=== PATIENT | male | born 1985 | race Caucasian/White ===

== ENCOUNTER 2019-10-05 09:39 | Inpatient (IN) | payer MEDICAID ==
[~2019-10-05] VITALS: Ht 193 cm; Wt 72.7 kg
[~2019-10-05 09:39] MED LIST: CYAN500T46 PO; FAMO-128 PO
[2019-10-05] MEDS ORDERED: normal saline 1000ML IV soln IVB ONE (09:50)
[2019-10-05] MEDS ORDERED: ondansetron/PF 4mg/2ml inj IV ONE (09:50)
--- NOTE | 2019-10-05 10:14 | NUR ---
DEPUTY AMIN CALLED FOR UPDATE- WILL CALL BACK IN HR. #[phone]. PT CONSERVED.
[2019-10-05 10:24] LABS: BASOPHILS % (AUTO) 0.8 % (0-1); EOSINOPHILS # (AUTO) 0.2 X10'3 (0-0.9); EOSINOPHILS % (AUTO) 3.4 % (0-6); HEMATOCRIT 46.4 % (42.0-52.0); LYMPHOCYTES # (AUTO) 1.6 X10'3 (1.1-4.8); LYMPHOCYTES % (AUTO) 36.7 % (21-51); MEAN CORPUSCULAR HGB CONC 34.4 g/dL (33.0-36.5); MEAN CORPUSCULAR VOLUME 95.8 FL (78-98); MEAN PLATELET VOLUME 8.4 FL (7.4-10.4); MONOCYTES # (AUTO) 0.3 X10'3 (0-0.9); MONOCYTES % (AUTO) 6.7 % (2-12); NEUTROPHILS # (AUTO) 2.3 X10'3 (1.8-7.7); NEUTROPHILS % (AUTO) 52.4 % (42-75); PLATELET COUNT 184 X10'3 (140-440); RED BLOOD COUNT 4.84 X10'6 (4.70-6.10); RED CELL DISTRIBUTION WIDTH 13.9 % (11.5-14.5); WHITE BLOOD COUNT 4.4 X10'3 (4.5-11.0)
--- NOTE | 2019-10-05 10:32 | NUR ---
PT GOES BY TRAM.
[2019-10-05 10:48] LABS: ALANINE AMINOTRANSFERASE 41 U/L (12-78); ALBUMIN 3.7 G/DL (3.4-5.0); ALBUMIN/GLOBULIN RATIO 0.9 (1.1-1.5); ALKALINE PHOSPHATASE 153 IU/L (46-116); ANION GAP 7 (8-16); ASPARTATE AMINO TRANSFERASE 24 U/L (10-37); BILIRUBIN,TOTAL 0.5 MG/DL (0.1-1.0); BLOOD UREA NITROGEN 13 MG/DL (7-18); BUN/CREATININE RATIO 11.2 (5.4-32.0); CALCIUM 8.9 MG/DL (8.5-10.1); CHLORIDE 104 MMOL/L (99-107); CREATINE KINASE 48 U/L (39-308); CREATININE 1.16 MG/DL (0.60-1.10); GLUCOSE 110 MG/DL (70-104); MAGNESIUM 1.9 MG/DL (1.5-2.4); POTASSIUM 4.4 MMOL/L (3.5-5.1); SODIUM 139 MMOL/L (135-145); TOTAL PROTEIN 7.6 G/DL (6.4-8.2); eGFR 73 ML/MIN
[2019-10-05] MEDS ORDERED: iohexol 350MG/ML 100ml bottle IV ONE (11:01)
[2019-10-05 11:11] LABS: ETHANOL < 0.010 GM/DL (0.0-0.010)
--- NOTE | 2019-10-05 11:51 | NUR ---
marcy fong called for update- pt negative for marfans syndrome genetic testing, echo scheduled tomorrow. and cardiac stress test at dr carlson last week.
--- NOTE | 2019-10-05 11:52 | NUR ---
STRESS TEST REQUESTED FROM DR. SEVILLA'S OFFICE.
[2019-10-05 11:55] LABS: CLARITY,URINE CLEAR (Clear); COLOR,URINE YELLOW (Yellow); GLUCOSE, URINE NEGATIVE (Neg); KETONES,URINE NEGATIVE (Neg); LEUKOCYTE ESTERASE ,URINE NEGATIVE (Neg); NITRITES, URINE NEGATIVE (Neg); OCCULT BLOOD,URINE NEGATIVE (Neg); PH,URINE 6.5 (4.8-8.0); PROTEIN,URINE NEGATIVE (Neg); UROBILINOGEN,URINE 0.2 E.U/dL (0.2-1.0)
[2019-10-05 12:07] LABS: UA COLLECTION TYPE NON-SPECIFIED
[2019-10-05 12:15] LABS: URINE AMPHETAMINE SCREEN NEGATIVE (Neg); URINE BARBITUATE SCREEN NEGATIVE (Neg); URINE BENZODIAZEPINES SCREEN NEGATIVE (Neg); URINE CANNABINOID SCREEN NEGATIVE (Neg); URINE COCAINE SCREEN NEGATIVE (Neg); URINE METHADONE SCREEN NEGATIVE (Neg); URINE OPIATE SCREEN NEGATIVE (Neg); URINE PHENCYCLIDINE SCREEN NEGATIVE (Neg)
--- NOTE | 2019-10-05 12:20 | NUR ---
BAMBI UPDATED- PT NEGATIVE FOR MARFAN'S SYNDROME, ECHO TOMORROW AND CARDIAC STRESS TEST RECENT FROM DR DE LA VEGA.
[2019-10-05] MEDS ORDERED: enoxaparin 100mg/ml syringe SUBCUT ONE (12:25)
[2019-10-05] MEDS ORDERED: nitroGLYCERIN 0.4mg SUBLingual tab SL PRN (12:25)
[2019-10-05] MEDS ORDERED: aspirin 81mg tab.chew PO ONE (12:25)
[2019-10-05] MEDS ORDERED: OLAN15TA17 PO (12:29)
--- NOTE | 2019-10-05 12:54 | NUR ---
SANTI - UPDATED ON PT ADMISSION.
[2019-10-05] MEDS ORDERED: HYDROcodone/acetaminophen 5mg/325mg tablet PO PRN (13:05)
[2019-10-05] MEDS ORDERED: morphine 2 MG/ML inj. syringe IV PRN (13:05)
[2019-10-05] MEDS ORDERED: ondansetron/PF 4mg/2ml inj IV PRN (13:05)
[2019-10-05] MEDS ORDERED: acetaminophen 325mg tablet PO PRN ×2 (13:05)
[2019-10-05] MEDS ORDERED: magnesium hydroxide 30ml (MOM) UD suspension PO PRN (13:05)
[2019-10-05] MEDS ORDERED: mag hydrox/Alum hydrox/simeth 30ml oral suspension PO PRN (13:05)
--- NOTE | 2019-10-05 13:06 | NUR ---
CHRISTIE JARVIS FATHER AT BEDSIDE, REPORTS MUST GET CONSENT FROM CONSERVATOR DEPUTY. GIVING GRAYSON LACY DEPUTY INFORMATION.
[2019-10-05 13:43] LABS: HEMOGLOBIN A1C 5.4 % (4.5-6.2)
--- NOTE | 2019-10-05 15:22 | NUR ---
FLOOR NOT READY FOR REPORT, TO CALL BACK IN 10MIN
--- NOTE | 2019-10-05 15:36 | NUR ---
#[phone] CALL FOR CONSERVATOR DEPUTY IF NEEDED.
[2019-10-05 16:30] VITALS: BP 124/72
[2019-10-05] MEDS: morphine 2 MG/ML inj. syringe IV PRN ×2 (17:47→23:29)
[2019-10-05 18:00] VITALS: BP 113/69
--- NOTE | 2019-10-05 18:55 | NUR ---
Patient in room MED 314. I have received report from Gisele Aldana and had the opportunity to ask questions and assume patient care.
--- NOTE | 2019-10-05 19:44 | NUR ---
Problems reprioritized. Patient report given, questions answered & plan of care reviewed with TONG Price.
[2019-10-05] MEDS ORDERED: OLANZAPINE 5 MG TABLET PO SCH (21:00)
[2019-10-05] MEDS: metoprolol tartrate 12.5mg (1/2 tablet) PO SCH (21:12)
[2019-10-05 22:00] VITALS: BP 109/67
[2019-10-06] VITALS (11 sets, daily range): BP systolic 105–122; BP diastolic 56–76
[2019-10-06 02:53] LABS: BASOPHILS % (AUTO) 0.7 % (0-1); EOSINOPHILS # (AUTO) 0.2 X10'3 (0-0.9); EOSINOPHILS % (AUTO) 2.7 % (0-6); HEMATOCRIT 43.4 % (42.0-52.0); LYMPHOCYTES # (AUTO) 2.3 X10'3 (1.1-4.8); LYMPHOCYTES % (AUTO) 37.2 % (21-51); MEAN CORPUSCULAR HGB CONC 34.5 g/dL (33.0-36.5); MEAN CORPUSCULAR VOLUME 95.7 FL (78-98); MEAN PLATELET VOLUME 8.5 FL (7.4-10.4); MONOCYTES # (AUTO) 0.4 X10'3 (0-0.9); MONOCYTES % (AUTO) 6.4 % (2-12); NEUTROPHILS # (AUTO) 3.3 X10'3 (1.8-7.7); PLATELET COUNT 171 X10'3 (140-440); RED BLOOD COUNT 4.53 X10'6 (4.70-6.10); RED CELL DISTRIBUTION WIDTH 13.7 % (11.5-14.5); WHITE BLOOD COUNT 6.2 X10'3 (4.5-11.0)
[2019-10-06 03:02] LABS: ALBUMIN 3.4 G/DL (3.4-5.0); ANION GAP 7 (8-16); BLOOD UREA NITROGEN 14 MG/DL (7-18); BUN/CREATININE RATIO 12.8 (5.4-32.0); CALCIUM 8.9 MG/DL (8.5-10.1); CHLORIDE 105 MMOL/L (99-107); CHOL/HDL RATIO 5.4 (0.00-4.99); CHOLESTEROL 129 MG/DL (0-200); CREATININE 1.09 MG/DL (0.60-1.10); GLUCOSE 109 MG/DL (70-104); HDL CHOLESTEROL 24 MG/DL (35-60); LDL CHOLESTEROL 85 MG/DL (50-100); SODIUM 141 MMOL/L (135-145); TOTAL CARBON DIOXIDE 29.5 MMOL/L (24-32); TRIGLYCERIDES 143 MG/DL (20-135); eGFR 78 ML/MIN
--- NOTE | 2019-10-06 06:10 | NUR ---
Patient in room MED 314. I have received report from TONG Price and had the opportunity to ask questions and assume patient care.
--- NOTE | 2019-10-06 07:00 | NUR ---
Problems reprioritized. Patient report given, questions answered & plan of care reviewed with Gisele Aldana.
[2019-10-06] MEDS: metoprolol tartrate 12.5mg (1/2 tablet) PO SCH (07:47)
[2019-10-06] MEDS ORDERED: aspirin 325mg tablet PO SCH (08:30)
[2019-10-06] MEDS ORDERED: LIDOcaine/PRILOcaine 5gm cream TP ONE (11:00)
--- NOTE | 2019-10-06 11:05 | NUR ---
PAGED DR. JACKSON- PT RESISTING CATH PREP "RE; [place] IN 314. PATIENT IS SAYING HE'S NOT SURE HE WANTS TO DO THE HEART CATH, REFUSING OUR ATTEMPT TO PREP. I DON'T HAVE DR. KEITH'S NUMBER. THANK YOU, TAYLER NGUYEN [phone]"
[2019-10-06] MEDS ORDERED: iohexol 350MG/ML 100ml bottle IV ONE (11:38)
[2019-10-06] MEDS ORDERED: iohexol 350 MG/ML 50ML vial IV ONE (11:38)
[2019-10-06] MEDS ORDERED: fentaNYL/PF 50MCG/1 ML 2ML syringe ONE (11:38)
[2019-10-06] MEDS ORDERED: LIDOcaine 1% (10mg/ml)w/preservative injection 20ml MDV ONE (11:38)
[2019-10-06] MEDS ORDERED: midazolam 2 mg/2 ml injection ONE ×2 (11:38→12:24)
[2019-10-06] MEDS ORDERED: verapamil 2.5 mg/ml inj IV ONE (12:09)
[2019-10-06] MEDS ORDERED: nitroGLYCERIN-Tridil 50MG/D5W 250 ML IV ONE (12:10)
[2019-10-06] MEDS ORDERED: heparin 1,000unit/ml 10ml vial 10 ML ONE (12:10)
[2019-10-06] MEDS ORDERED: normal saline 1000ml 1,000 ML IV SCH (13:35)
--- NOTE | 2019-10-06 14:34 | NUR ---
Patient removed right radial pressure device. No bleeding, no hematoma present.
--- NOTE | 2019-10-06 15:03 | NUR ---
Malnutrition Consult: Pt currently documented at 72.7kg, pt states UBW between 150-160 pounds within the past year. Pt states no significant wt change. Pt currently NPO, however documented 10/05 with 50-75% PO intake on a regular diet last night. No edema. LBM 10/04. Pt does not currently meet criteria for malnutrition. Will continue to monitor. Addendum: 10/06/19 at 1503 by Wing Janet MOORE Amended: Links added. Addendum: 10/06/19 at [address] TERESA Approcr
[2019-10-06 15:48] LABS: ALANINE AMINOTRANSFERASE 33 U/L (12-78); ALBUMIN 3.3 G/DL (3.4-5.0); ALBUMIN/GLOBULIN RATIO 0.9 (1.1-1.5); ALKALINE PHOSPHATASE 143 IU/L (46-116); ANION GAP 7 (8-16); ASPARTATE AMINO TRANSFERASE 20 U/L (10-37); BILIRUBIN,TOTAL 0.3 MG/DL (0.1-1.0); BLOOD UREA NITROGEN 12 MG/DL (7-18); BUN/CREATININE RATIO 11.2 (5.4-32.0); CALCIUM 8.2 MG/DL (8.5-10.1); CHLORIDE 102 MMOL/L (99-107); CREATININE 1.07 MG/DL (0.60-1.10); GLUCOSE 145 MG/DL (70-104); POTASSIUM 3.5 MMOL/L (3.5-5.1); SODIUM 137 MMOL/L (135-145); TOTAL CARBON DIOXIDE 27.6 MMOL/L (24-32); TOTAL PROTEIN 6.9 G/DL (6.4-8.2); eGFR 80 ML/MIN
[2019-10-06 15:49] LABS: CHOL/HDL RATIO 3.9 (0.00-4.99); CHOLESTEROL 122 MG/DL (0-200); HDL CHOLESTEROL 31 MG/DL (35-60); LDL CHOLESTEROL 84 MG/DL (50-100); TRIGLYCERIDES 91 MG/DL (20-135)
--- NOTE | 2019-10-06 16:02 | NUR ---
Spoke with Radha at [facility] regarding transportation scheduling for patient's discharge. According to Radha, the owner manager of [facility], Merry Young, will be providing transport for patient during discharge. Contact info for Merry is # .
--- NOTE | 2019-10-06 16:25 | NUR ---
PAGER ID: [phone] MESSAGE: Patient Michel Goncalves #[phone]. Would you like patient to be discharge with home medication only? Or are there new medications? Thank you. - TONG Méndez [phone]
--- NOTE | 2019-10-06 16:29 | NUR ---
Patient found standing in doorway, redirected to bedside. Found patient PIV cannula TIP hanging on IV pole, intact and still running with normal saline going through it. Patient admitted to removing PIV. No redness, or bleeding notated. telemetry leads have also been removed by patient. Patient doing well. No s/s of distress.
--- NOTE | 2019-10-06 17:54 | NUR ---
Problems reprioritized. Patient report given, questions answered & plan of care reviewed with Albert,RN
--- NOTE | 2019-10-06 17:55 | NUR ---
Left a voicemail for Merry at [facility] to check on transportation status. Requested a call back.
--- NOTE | 2019-10-06 18:08 | NUR ---
Per MD, pt stable for discharge. ALL belongings gathered and sent with patient and caregiver. No new prescriptions. No PIV to remove. Discharge instructions reviewed with and signed by patient. Patient transported via WC by nursing staff to [facility] from assisted living facility. All questions and concerns addressed.
--- NOTE | 2019-10-06 18:24 | NUR ---
I have reviewed and agree with all interventions, assessments performed and documented by TONG Méndez
== END 2019-10-06 18:01 | disposition home or self-care (01) | DRG 192 ==
LOC: ER 09:40 → ED HOLD 13:03 → EDBEDREQSVC 14:44 → MED 3N 16:15 → CMPBEDREQ 21:22 → OBSVTOIN 10-06 09:00
PROVIDERS: ADMIT Internal Medicine; ATTEND Internal Medicine
PROC: B3201ZZ Computerized Tomography (CT Scan) of Thoracic Aorta using Low Osmolar Contrast (ICD-10-PCS; 2019-10-05)
PROC: B32T1ZZ Computerized Tomography (CT Scan) of Left Pulmonary Artery using Low Osmolar Contrast (ICD-10-PCS; 2019-10-05)
PROC: B32S1ZZ Computerized Tomography (CT Scan) of Right Pulmonary Artery using Low Osmolar Contrast (ICD-10-PCS; 2019-10-05)
PROC: 4A023N7 Measurement of Cardiac Sampling and Pressure, Left Heart, Percutaneous Approach (ICD-10-PCS; principal; 2019-10-06)
PROC: B2111ZZ Fluoroscopy of Multiple Coronary Arteries using Low Osmolar Contrast (ICD-10-PCS; 2019-10-06)
PROC: B2151ZZ Fluoroscopy of Left Heart using Low Osmolar Contrast (ICD-10-PCS; 2019-10-06)
DX: R07.89 Other chest pain (principal); I95.9 Hypotension, unspecified; Q87.40 Marfan syndrome, unspecified; F12.90 Cannabis use, unspecified, uncomplicated; I48.91 Unspecified atrial fibrillation; F17.210 Nicotine dependence, cigarettes, uncomplicated; R55 Syncope and collapse; I25.9 Chronic ischemic heart disease, unspecified; F41.9 Anxiety disorder, unspecified; R94.39 Abnormal result of other cardiovascular function study; J44.9 Chronic obstructive pulmonary disease, unspecified; Z87.820 Personal history of traumatic brain injury; Z88.0 Allergy status to penicillin
CPT/HCPCS: 36415; 71045; 71275; 80048; 80053; 80061; 80305; 80320; 81003; 82550; 83036; 83735; 83880; 84484; 85025; 87081; 93005; 93306; 93458; 96361; 96372; 96374; 96375; 96376; 99152; 99291; A4620; C1769; G0378; J1644; J1650; J2001; J2250; J2270; J2405; J3010; J3490; Q9967

== ENCOUNTER 2019-10-10 13:25 | Emergency (ER) | payer MEDICAID ==
[~2019-10-10] VITALS: Ht 188 cm; Wt 70.0 kg
[~2019-10-10 13:25] MED LIST changes: -CYAN500T46 PO; -FAMO-128 PO; +OLAN15TA17 PO
--- NOTE | 2019-10-10 14:23 | NUR ---
CONSERVATOR: MARK [phone]. [facility] [phone]
--- NOTE | 2019-10-10 14:39 | NUR ---
Spoke to Radha with [facility] and obtained verbal consent to treat pt. Radha requesting updates be given to Carmella as she is the primary conservator for pt.
[2019-10-10 14:55] VITALS: BP 120/68
[2019-10-10] MEDS ORDERED: IBUP-1984 PO (15:36)
--- NOTE | 2019-10-10 15:58 | NUR ---
RONEN called from said after hours number is [phone] ([facility])
== END 2019-10-10 16:16 | disposition home or self-care (01) ==
LOC: ER 13:25
DX: R07.89 Other chest pain (principal); J90 Pleural effusion, not elsewhere classified; J44.9 Chronic obstructive pulmonary disease, unspecified; F41.9 Anxiety disorder, unspecified; F12.90 Cannabis use, unspecified, uncomplicated; Z98.890 Other specified postprocedural states; Z88.0 Allergy status to penicillin; Z91.018 Allergy to other foods; Z79.899 Other long term (current) drug therapy
CPT/HCPCS: 71046; 93005; 99283; 99284

== ENCOUNTER 2019-12-09 08:02 | Emergency (ER) | payer MEDICAID ==
[~2019-12-09] VITALS: Ht 193 cm; Wt 68.2 kg
[2019-12-09] MEDS ORDERED: normal saline 1000ML IV soln IVB ONE ×2 (08:10→09:30)
[2019-12-09 08:51] LABS: BASOPHILS % (AUTO) 0.5 % (0-1); EOSINOPHILS # (AUTO) 0.2 X10'3 (0-0.9); EOSINOPHILS % (AUTO) 3.5 % (0-6); HEMATOCRIT 49.3 % (42.0-52.0); HEMOGLOBIN 16.9 g/dl (14.0-17.9); LYMPHOCYTES # (AUTO) 1.4 X10'3 (1.1-4.8); MEAN CORPUSCULAR HEMOGLOBIN 33.1 PG (27.0-31.0); MEAN CORPUSCULAR HGB CONC 34.4 g/dL (33.0-36.5); MEAN CORPUSCULAR VOLUME 96.4 FL (78-98); MEAN PLATELET VOLUME 8.1 FL (7.4-10.4); MONOCYTES # (AUTO) 0.2 X10'3 (0-0.9); MONOCYTES % (AUTO) 4.6 % (2-12); NEUTROPHILS # (AUTO) 2.7 X10'3 (1.8-7.7); NEUTROPHILS % (AUTO) 60.4 % (42-75); PLATELET COUNT 143 X10'3 (140-440); RED BLOOD COUNT 5.11 X10'6 (4.70-6.10); RED CELL DISTRIBUTION WIDTH 14.5 % (11.5-14.5); WHITE BLOOD COUNT 4.5 X10'3 (4.5-11.0)
[2019-12-09 09:04] LABS: ALANINE AMINOTRANSFERASE 44 U/L (12-78); ALBUMIN 4.2 G/DL (3.4-5.0); ALKALINE PHOSPHATASE 161 IU/L (46-116); ANION GAP 7 (8-16); ASPARTATE AMINO TRANSFERASE 23 U/L (10-37); BILIRUBIN,TOTAL 0.3 MG/DL (0.1-1.0); BLOOD UREA NITROGEN 23 MG/DL (7-18); BUN/CREATININE RATIO 19.5 (5.4-32.0); CALCIUM 9.2 MG/DL (8.5-10.1); CHLORIDE 106 MMOL/L (99-107); CREATININE 1.18 MG/DL (0.60-1.10); GLUCOSE 113 MG/DL (70-104); POTASSIUM 4.3 MMOL/L (3.5-5.1); SODIUM 142 MMOL/L (135-145); TOTAL CARBON DIOXIDE 29.1 MMOL/L (24-32); TOTAL PROTEIN 8.3 G/DL (6.4-8.2); eGFR 71 ML/MIN
[2019-12-09 10:08] VITALS: BP 107/83
== END 2019-12-09 10:17 | disposition home or self-care (01) ==
LOC: ER 08:02
DX: R42 Dizziness and giddiness (principal); F17.210 Nicotine dependence, cigarettes, uncomplicated; F12.90 Cannabis use, unspecified, uncomplicated; J44.9 Chronic obstructive pulmonary disease, unspecified; Q87.40 Marfan syndrome, unspecified; Z88.0 Allergy status to penicillin; Z91.018 Allergy to other foods
CPT/HCPCS: 36415; 71045; 80053; 83605; 83735; 84145; 85025; 87040; 93005; 96360; 99284; J7030

== ENCOUNTER → 2025-03-23 | Outpatient (CLI) | payer MEDICAID ==
[~2025-03-23] MED LIST changes: -OLAN15TA17 PO; +OLAN15TA97 PO
--- NOTE | 2025-03-23 10:16 | ELECTROCARDIOGRAPH REPORT ---
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 RONALD Campos Measurements Intervals Adrian Rate: 55 P: 50 [place]: 152 QRS: 29 QRSD: 107 T: 77 QT: 404 QTc: 387 Interpretive Statements Sinus bradycardia ST elevation suggests acute pericarditis Electronically Signed On 03-23-2025 19:48:[address] RONALD Campos Please click the below link to view image of tracing.
== END | disposition home or self-care (01) ==
LOC: RAD 09:35
PROVIDERS: ATTEND Nurse Practitioner Psychiatric/Mental Health
DX: R00.1 Bradycardia, unspecified (principal); Z79.899 Other long term (current) drug therapy; F39 Unspecified mood [affective] disorder; I21.09 ST elevation (STEMI) myocardial infarction involving other coronary artery of anterior wall
CPT/HCPCS: 93005